=== PATIENT | male | born 1940 | race Caucasian/White ===

== ENCOUNTER 2021-05-01 10:20 | Emergency (ER) | payer MEDICARE, BC | END 2021-05-01 11:08 | disposition home or self-care (01) | LOC: BURERS 10:20 | DX: L03.012 Cellulitis of left finger (principal); K21.9 Gastro-esophageal reflux disease without esophagitis; E78.5 Hyperlipidemia, unspecified; E78.00 Pure hypercholesterolemia, unspecified | CPT/HCPCS: 99283 ==